=== PATIENT | male | born 1970 | race Caucasian/White ===

== ENCOUNTER → 2017-11-01 | Outpatient (CLI) | payer BC | LOC: GMAB 10:55 | PROVIDERS: ATTEND Family Medicine | DX: Z00.01 Encounter for general adult medical examination with abnormal findings (principal) ==

== ENCOUNTER → 2019-03-15 | Outpatient (CLI) | payer BC | LOC: GMAE 10:47 | PROVIDERS: ATTEND Family Medicine | DX: Z00.01 Encounter for general adult medical examination with abnormal findings (principal) ==

== ENCOUNTER 2020-05-11 20:25 | Emergency (ER) | payer BC ==
[2020-05-11] MEDS ORDERED: HYDROcodone 10MG/APAP 325MG 1 EA TAB PO ONE (20:44)
--- NOTE | 2020-05-11 20:47 | ED.PDOC ---
History of Present Illness - General Chief Complaint: Trauma Stated Complaint: hit by bull 2 hr ago, right knee gave out Time Seen by Provider: 05/11/20 20:28 Additional Information: The patient is a 49 year old male who complains of being "run over by a bull." He states that he was tossed over a fence by a bull landing on his right knee. The injury occurred a few hours prior to arrival. He was later walking when his knee gave out and he has been unable to bear weight since that time. He complains of pain, swelling. No other injuries at this time. - History of Present Illness Allergies/Adverse Reactions: Allergies NO KNOWN ALLERGY Allergy (Verified 03/08/13 14:36) Home Medications: Ambulatory Orders HYDROcodone 5MG/APAP 325MG [[place] 5/325] 1 tab PO Q4H PRN #0 tab 03/14/13 Olmesartan Medoxomil [Benicar] 40 mg PO AM #0 03/14/13 levoFLOXacin [Levaquin] 500 mg PO QD #0 tab 03/14/13 metroNIDAZOLE [Flagyl] 500 mg PO Q8H #0 tab 03/14/13 Acetaminophen W/ Codeine [Tylenol W/ CODEINE #3] 1 ea PO Q6-8H PRN #15 03/10/15 Acetaminophen W/ Codeine [Tylenol W/ CODEINE #3] 1 tablet PO Q4HR #20 ea 05/11/20 Review of Systems - Review of Systems Constitutional: States: no symptoms reported EENTM: States: no symptoms reported Respiratory: States: no symptoms reported Cardiology: States: no symptoms reported Gastrointestinal/Abdominal: States: no symptoms reported Genitourinary: States: no symptoms reported Musculoskeletal: States: joint pain, joint swelling Skin: States: no symptoms reported Neurological: States: no symptoms reported Endocrine: States: no symptoms reported Hematologic/Lymphatic: States: no symptoms reported All other Systems: Reviewed and Negative Past Medical History (General) - Patient Medical History Hx Seizures: No Hx Stroke: No Hx Asthma: No Hx of COPD: No Hx Cardiac Disorders: No Hx Congestive Heart Failure: No Hx Pacemaker: No Hx Hypertension: Yes Hx Diabetes: No Hx MRSA: No - Social History Hx Alcohol Use: No Hx Substance Use: No Hx Physical Abuse: No Hx Emotional Abuse: No Family Medical History - Family History Mother Family History: No Known Physical Exam - Physical Exam General Appearance: Comfortable, Obvious distress Ears, Nose, Throat: hearing grossly normal Respiratory: no respiratory distress Cardiovascular/Chest: regular rate, rhythm Peripheral Pulses: dorsalis pedis,right: 1+ - obtained by doppler, warm with normal capillary refill, dorsalis pedis,left: 1+ - obtained by doppler, warm with normal cap refill Gastrointestinal/Abdominal: non tender, soft Rectal Exam: deferred Extremity: no pedal edema, no calf tenderness, normal capillary refill, other - diffuse swelling of right knee with ecchymosis. ROM is limited secondary to pain. Limited extension of knee, large suprapatellar effusion Neurologic: no motor/sensory deficits, oriented x 3 Progress - Progress Progress: 05/11/20 20:50 SUSAN performed due to difficulty palpating DP pulses (although diminished symmetrically) Right DP 190mmHg, right brachial 168mmHg = 1.13. minimal concern for underlying vascular injury. 05/11/20 21:38 Patient reassessed, workup as below.There is no evidence for acute bony injury. Will treat with knee immobilizer, crutches, elevation and ice. He will follow up with orthopedics for further evaluation this week. Home care instructions and return indications reviewed. - Results/Orders Results/Orders: XAM DESCRIPTION: Knee,Right Complete CLINICAL HISTORY: crush injury, knee pain COMPARISON: None FINDINGS: Three x-ray views of the right knee were submitted. There is no acute fracture or dislocation. Bone mineralization is within normal limits. There is a suprapatellar fluid collection. There is no radiopaque foreign body material. IMPRESSION: No acute fracture or dislocation. Suprapatellar fluid collection. Electronically signed by: Ace sterling MD 05/11/2020 9:26 PM CDT Departure - Departure Clinical Impression: Knee pain, acute Qualifiers: Laterality: right Qualified Code(s): M25.561 - Pain in right knee Time of Disposition: 21:41 Disposition: Discharge to Home or Self Care Departure Forms: ED Discharge - Pt. Copy, Patient Portal Self Enrollment Instructions: DI for Trauma, Internal Derangement of the Knee (DC), Knee Immobilizer (DC) Diet: resume usual diet Activity: increase activity as tolerated Referrals: LUTHER SHELTON MD [Primary Care Provider] - 1-2 Weeks Vin Lyons MD [Active Staff] - 1-2 Days Prescriptions: Acetaminophen W/ Codeine [Tylenol W/ CODEINE #3] 1 tablet PO Q4HR #20 ea Home Medications: Ambulatory Orders HYDROcodone 5MG/APAP 325MG [[place] 5/325] 1 tab PO Q4H PRN #0 tab 03/14/13 Olmesartan Medoxomil [Benicar] 40 mg PO AM #0 03/14/13 levoFLOXacin [Levaquin] 500 mg PO QD #0 tab 03/14/13 metroNIDAZOLE [Flagyl] 500 mg PO Q8H #0 tab 03/14/13 Acetaminophen W/ Codeine [Tylenol W/ CODEINE #3] 1 ea PO Q6-8H PRN #15 03/10/15 Acetaminophen W/ Codeine [Tylenol W/ CODEINE #3] 1 tablet PO Q4HR #20 ea 05/11/20
[2020-05-11 21:07] VITALS: O2SAT 99
--- NOTE | 2020-05-11 21:27 | RAD ---
EXAM DESCRIPTION: Knee,Right Complete CLINICAL HISTORY: crush injury, knee pain COMPARISON: None FINDINGS: Three x-ray views of the right knee were submitted. There is no acute fracture or dislocation. Bone mineralization is within normal limits. There is a suprapatellar fluid collection. There is no radiopaque foreign body material. IMPRESSION: No acute fracture or dislocation. Suprapatellar fluid collection. Electronically signed by: Ace Tellez MD 05/11/2020 9:26 PM CDT
[2020-05-11 22:01] VITALS: BP 169/94; TEMP 97
== END 2020-05-11 22:03 | disposition home or self-care (01) ==
LOC: ER 20:25
DX: S80.01XA Contusion of right knee, initial encounter (principal); I10 Essential (primary) hypertension; W55.22XA Struck by cow, initial encounter; Y92.9 Unspecified place or not applicable; Z79.899 Other long term (current) drug therapy

== ENCOUNTER → 2020-05-15 | Outpatient (CLI) | payer BC ==
--- NOTE | 2020-05-16 09:06 | MRI ---
EXAM DESCRIPTION: MRI right knee CLINICAL HISTORY: Knee pain and swelling. Injury 4 days ago COMPARISON: None. TECHNIQUE: Multiplanar, multisequence MR images of the right knee FINDINGS: Interstitial partial tear of the ACL. The ligament is thickened with abnormal increased signal. Tear of the femoral origin of the lateral bundle ACL. Osseous contusion posterior nonarticular lateral tibial epiphysis and minimal contusion posterior lateral femoral condyle Tear of the meniscal femoral extension of the deep MCL and partial tear of the anterior superficial fibers of the MCL with associated heterogeneous signal, focal soft tissue edema and swelling. Likely focal soft tissue hemorrhage. No laxity of the superficial MCL otherwise Large hemarthrosis. No intra-articular loose body. No medial or lateral meniscal tear. Mild medial femorotibial chondral thinning and surface irregularity. Marginal posterior lateral tibial chondral thinning and irregularity at the site of the contusion. No chronic osteochondral lesion otherwise Mild patellar chondral thinning and surface irregularity mostly over the medial facet and apex. Chronic grade 4 chondrosis at the trochlear apex over about 12 mm Biceps femoris, popliteus and iliotibial band tendons are intact. Patellar and quadriceps tendons and tendons of the posterior medial knee are intact IMPRESSION: Interstitial partial tear of the ACL with thickening and increased signal of the medial bundle. Tear of the femoral origin of the lateral bundle Osseous contusion and marginal chondrosis posterior lateral tibial epiphysis and a small contusion posterior lateral femoral condyle Grade 2 MCL sprain/partial interstitial tear involving the anterior superficial femoral origin of the MCL and the meniscal femoral extension of the deep MCL Large hemarthrosis Electronically signed by: Juarez Tapia MD 05/16/2020 9:04 AM CDT
== END ==
LOC: MRI 10:08
PROVIDERS: ATTEND Family Medicine
DX: S83.511A Sprain of anterior cruciate ligament of right knee, initial encounter (principal); S83.411A Sprain of medial collateral ligament of right knee, initial encounter; S80.01XA Contusion of right knee, initial encounter; M25.061 Hemarthrosis, right knee

== ENCOUNTER 2020-08-23 13:29 | Emergency (ER) | payer BC ==
[2020-08-23] MEDS: ONDANSETRON INJ 4 MG/2 ML VIAL IV ONE (14:02)
[2020-08-23] MEDS: KETOROLAC TROMETHAMINE INJ 30 MG/ML VIAL IV ONE (14:02)
[2020-08-23] MEDS: MORPHINE SULFATE INJ 10 MG/ML VIAL IV ONE ×2 (14:03→16:07)
--- NOTE | 2020-08-23 14:03 | ED.PDOC ---
History of Present Illness - General Chief Complaint: Problem Time Seen by Provider: 08/23/20 13:49 Source: patient, RN notes reviewed, Vital Signs reviewed, family Exam Limitations: no limitations - History of Present Illness Initial Comments: Pt has h/o kidney stones and presents with 3 hour h/o left flank pain that radiates to left groin that is similar to previous kidney stones. Has had nausea and vomiting. Denies fever, diarrhea or hematuria. Has taken tylenol at home, but states he vomited it up. Allergies/Adverse Reactions: Allergies NO KNOWN ALLERGY Allergy (Verified 08/23/20 14:17) Home Medications: Ambulatory Orders HYDROcodone 5MG/APAP 325MG [[place] 5/325] 1 tab PO Q4H PRN #0 tab 03/14/13 Olmesartan Medoxomil [Benicar] 40 mg PO AM #0 03/14/13 levoFLOXacin [Levaquin] 500 mg PO QD #0 tab 03/14/13 metroNIDAZOLE [Flagyl] 500 mg PO Q8H #0 tab 03/14/13 Acetaminophen W/ Codeine [Tylenol W/ CODEINE #3] 1 ea PO Q6-8H PRN #15 03/10/15 Acetaminophen W/ Codeine [Tylenol W/ CODEINE #3] 1 tablet PO Q4HR #20 ea 05/11/20 Ondansetron HCl [Zofran] 4 mg PO Q6HR PRN #15 tab 08/23/20 traMADol 37.5MG/APAP 325MG [Ultracet] 1 tablet PO .Q4H PRN 4 Days #20 tab 08/23/20 Review of Systems - Review of Systems Constitutional: Denies: chills, fever Respiratory: Denies: cough, short of breath Cardiology: Denies: chest pain, palpitations, syncope Gastrointestinal/Abdominal: States: abdominal pain, nausea, vomiting Genitourinary: Denies: dysuria, frequency, hematuria Musculoskeletal: States: back pain - Left flank pain Neurological: Denies: headache, paresthesia All other Systems: Reviewed and Negative Past Medical History (General) - Patient Medical History Hx Seizures: No Hx Stroke: No Hx Asthma: No Hx of COPD: No Hx Cardiac Disorders: No Hx Congestive Heart Failure: No Hx Pacemaker: No Hx Hypertension: Yes Hx Diabetes: No Hx MRSA: No - Vaccination History Hx Tetanus, Diphtheria Vaccination: Yes Hx Influenza Vaccination: Yes - 2019 - Social History Hx Alcohol Use: No Hx Substance Use: No Hx Physical Abuse: No Hx Emotional Abuse: No Family Medical History - Family History Mother Family History: No Known Physical Exam - Physical Exam General Appearance: Alert, Other - Appears uncomfortable Neck: full range of motion, supple Respiratory: chest non-tender, lungs clear, normal breath sounds, no respiratory distress Cardiovascular/Chest: regular rate, rhythm, no murmur Gastrointestinal/Abdominal: soft, other - Mild TTP LLQ. No CVA tenderness Extremity: normal range of motion, non-tender, no pedal edema Neurologic: no motor/sensory deficits, alert, normal mood/affect Skin Exam: normal color, warm/dry Progress - Progress Progress: 08/23/20 15:51 Pt presents with suddeen onset L flank pain radiating to LLQ. CT shows 2mm ureteral stone at UVJ with mild hydro. Pain is controled at this time and he feels comfortable going home with trial of passage and will f/u with pcp in 1-2 days for recheck. Will get repeat imaging within 4 weeks to ensure stone has passed. srp given. - Results/Orders Results/Orders: CT Abd/Pelvis IMPRESSION: 2 mm calculus in distal left ureter adjacent to the UVJ level with moderate left hydronephrosis. Fat stranding and free fluid adjacent to the left kidney and left ureter may be postobstructive edema. Differential includes left pyelonephritis. Consider also left renal forniceal rupture as a possible etiology for left retroperitoneal perinephric free fluid 1 mm nonobstructing calculus in left renal upper pole Small umbilical and inguinal fat-containing hernias Cholecystolithiasis Likely prior appendectomy 08/23/20 13:51 Sodium Chloride 0.9% (Flush) [Saline Flush Syringe] 10 ml IV PRN PRN Laboratory Results - last 24 hr 08/23/20 08/23/20 08/23/20 14:05 14:05 15:30 WBC 13.2 H RBC 5.42 Hgb 15.4 Hct 45.4 MCV 83.8 MCH 28.5 MCHC 34.0 RDW 13.2 Plt Count 360 MPV 6.6 L Absolute Neuts (auto) 11.70 H Absolute Lymphs (auto) 0.90 L Absolute Monos (auto) 0.50 Absolute Eos (auto) 0.00 Absolute Basos (auto) 0.00 Neutrophils % 88.6 H Lymphocytes % 7.1 L Monocytes % 4.1 Eosinophils % 0.0 L Basophils % 0.2 Sodium 139 Potassium 4.1 Chloride 106 Carbon Dioxide 25 Anion Gap 12.1 BUN 18 Creatinine 1.30 BUN/Creatinine Ratio 13.8 Random Glucose 145 H Serum Osmolality 282.0 Calcium 9.1 Lipase 27 Urine Color Yellow Urine Appearance Clear Urine pH 6.0 Ur Specific [place] 1.025 Urine Protein Trace Urine Glucose (UA) Negative Urine Ketones 15 H Urine Blood Negative Urine Nitrite Negative Urine Bilirubin Small H Urine Urobilinogen 0.2 Ur Leukocyte Esterase Negative Urine RBC 0 Urine WBC 0 Ur Epithelial Cells 0 Urine Bacteria 0 Departure - Departure Clinical Impression: Ureterolithiasis, Left flank pain Nausea & vomiting Qualifiers: Vomiting type: unspecified Vomiting Intractability: non-intractable Qualified Code(s): R11.2 - Nausea with vomiting, unspecified Time of Disposition: 15:53 Disposition: Discharge to Home or Self Care Departure Forms: ED Discharge - Pt. Copy, Patient Portal Self Enrollment Instructions: Kidney Stones (DC) Activity: increase activity as tolerated Referrals: LUTHER SHELTON MD [Primary Care Provider] - 1-2 Days Prescriptions: Ondansetron HCl [Zofran] 4 mg PO Q6HR PRN #15 tab PRN Reason: Nausea traMADol 37.5MG/APAP 325MG [Ultracet] 1 tablet PO .Q4H PRN 4 Days #20 tab PRN Reason: Pain Home Medications: Ambulatory Orders HYDROcodone 5MG/APAP 325MG [[place] 5/325] 1 tab PO Q4H PRN #0 tab 03/14/13 Olmesartan Medoxomil [Benicar] 40 mg PO AM #0 03/14/13 levoFLOXacin [Levaquin] 500 mg PO QD #0 tab 03/14/13 metroNIDAZOLE [Flagyl] 500 mg PO Q8H #0 tab 03/14/13 Acetaminophen W/ Codeine [Tylenol W/ CODEINE #3] 1 ea PO Q6-8H PRN #15 03/10/15 Acetaminophen W/ Codeine [Tylenol W/ CODEINE #3] 1 tablet PO Q4HR #20 ea 10/0 /20 Ondansetron HCl [Zofran] 4 mg PO Q6HR PRN #15 tab 08/23/20 traMADol 37.5MG/APAP 325MG [Ultracet] 1 tablet PO .Q4H PRN 4 Days #20 tab 08/23/20
[2020-08-23] MEDS: SODIUM CHLORIDE 0.9% 1000ML 1,000 ML IVS ONE (14:05)
[2020-08-23] MEDS: SODIUM CHLORIDE 0.9% (FLUSH) 10 ML SYG IV PRN (14:12)
--- NOTE | 2020-08-23 14:44 | CT ---
EXAMINATION: Abdoment/Pelvis w/o Contrast. HISTORY: 50 years Male. left flank pain. . . TECHNIQUE: CT ABDOMEN PELVIS WITHOUT IV CONTRAST . One or more of the following dose optimizing techniques was utilized for this exam: Automated exposure control, adjustment of the mA and/or kV according to patient size, and/or use of iterative reconstruction technique. COMPARISON: 03/08/[address] images without radiology report FINDINGS: Slight degenerative change in the spine and pelvis. No acute fracture or vertebral compression. Normal cardiac size without pericardial effusion. No acute lung base finding. Lack of IV and oral contrast limits the examination. Normal noncontrast appearance of the liver, adrenals, pancreas, and spleen. Normal caliber aorta and IVC. Very small calcified density in the gallbladder lumen is most compatible with gallstone. No other biliary pathology. Right kidney appears normal without calculus or hydronephrosis. No right ureteral calculus or distention. There is a 2 mm calculus in the left distal ureter adjacent to the left UVJ level. There is associated moderate hydronephrosis on the left side proximal to the stone level. 1 mm nonobstructing calculus in left renal upper pole. Moderate fat stranding is present adjacent to the left kidney and nearly the entire course of the left ureter. There is also slight left perinephric free fluid. These findings may reflect postobstructive edema. Differential includes pyelonephritis. The free fluid could be secondary to forniceal rupture. Very small fat-containing umbilical hernia. Small fat-containing bilateral inguinal hernia. No mesenteric mass or adenopathy. Normal-appearing stomach and duodenum. No small bowel distention in the abdomen and pelvis to suggest intestinal obstruction. No pelvic cul-de-sac free fluid. Normal-appearing urinary bladder, prostate, and seminal vesicles. No definite rectal or sigmoid colon abnormality. No gross ascites, free air, or colonic distention. Normal-appearing cecum and terminal ileum. Appendix not visualized and is likely surgically absent since there are surgical clips at the cecal tip and the appendix appeared inflamed on the comparison exam. IMPRESSION: 2 mm calculus in distal left ureter adjacent to the UVJ level with moderate left hydronephrosis. Fat stranding and free fluid adjacent to the left kidney and left ureter may be postobstructive edema. Differential includes left pyelonephritis. Consider also left renal forniceal rupture as a possible etiology for left retroperitoneal perinephric free fluid 1 mm nonobstructing calculus in left renal upper pole Small umbilical and inguinal fat-containing hernias Cholecystolithiasis Likely prior appendectomy Electronically signed by: Abdulkadir Connolly MD 08/23/2020 2:42 PM [facility]
[2020-08-23] MEDS ORDERED: SODIUM CHLORIDE 0.9% 1000ML 1,000 ML ONE (14:54)
[2020-08-23 16:25] VITALS: BP 194/117; TEMP 97.9; O2SAT 99
== END 2020-08-23 16:10 | disposition home or self-care (01) ==
LOC: ER 13:29
DX: N13.2 Hydronephrosis with renal and ureteral calculous obstruction (principal); R11.2 Nausea with vomiting, unspecified; I10 Essential (primary) hypertension; Z79.899 Other long term (current) drug therapy; Z87.442 Personal history of urinary calculi
CPT/HCPCS: 36415; 74176; 80048; 81001; 83690; 85025; A4216; J1885; J2270; J2405; J7030